=== PATIENT | male | born 1955 | race Caucasian/White ===

== ENCOUNTER 2021-04-29 23:10 | Inpatient (IN) | payer BC ==
[~2021-04-29] VITALS: Ht 157.5 cm; Wt 63.5 kg
[~2021-04-29 23:10] MED LIST: ADDERALL 20 MG20 MG; DEMEROL50 MG; METOPROLOL TART25 MG PO; NORCO 10-325 T1 EACH; PREVACID30 M1; PROMETHAZINE HC25 M1; TYLENOL WITH C1 EACH PO
[2021-04-29] MEDS ORDERED: ASPIRIN 81 MG CHEW TAB PO ONE (23:30)
[2021-04-30 00:08] LABS: BASOPHILS # (AUTO) 0.1 (0.0-0.1); EOSINOPHILS # (AUTO) 0.1 (0.0-0.4); EOSINOPHILS % 1.1 % (0.0-6.0); HEMOGLOBIN 13.8 g/dL (14.0-18.0); LYMPHOCYTES # (AUTO) 1.7 (1.0-3.2); LYMPHOCYTES % 17.7 % (18.0-39.1); MEAN CORPUSCULAR HEMOGLOBIN 29.3 pg (28-32); MEAN CORPUSCULAR HGB CONC 34.5 g/dL (31-35); MEAN CORPUSCULAR VOLUME 84.9 fL (81-99); MONOCYTES # (AUTO) 0.5 (0.2-0.8); MONOCYTES % 5.2 % (4.4-11.3); NEUTROPHILS # (AUTO) 7.3 (2.1-6.9); NEUTROPHILS % 74.6 % (38.7-80.0); PLATELET COUNT 236 x10e3/uL (140-360); RED BLOOD COUNT 4.71 x10e6/uL (4.3-5.7); RED CELL DISTRIBUTION WIDTH 13.3 % (11.7-14.4)
[2021-04-30] MEDS: MORPHINE SULFATE INJ 4 MG/ML INJ 1ML IV PRN ×2 (00:20→18:00)
[2021-04-30] MEDS: ONDANSETRON HCL INJ 2MG/ML 2ML 2 MG/ML VIAL IV PRN ×3 (00:20→11:19)
[2021-04-30] MEDS ORDERED: ONDANSETRON HCL INJ 2MG/ML 2ML 2 MG/ML VIAL ONE (00:21)
[2021-04-30] MEDS ORDERED: MORPHINE SULFATE INJ 4 MG/ML INJ 1ML ONE (00:21)
[2021-04-30 00:28] LABS: ALBUMIN 3.8 g/dL (3.5-5.0); ALBUMIN/GLOBULIN RATIO 1.2 (0.8-2.0); ANION GAP 15.8 mmol/L (8-16); CALCIUM 8.7 mg/dL (8.4-10.2); CREATININE, SERUM 1.37 mg/dL (0.72-1.25); POTASSIUM 3.8 mmol/L (3.5-5.1)
[2021-04-30 00:34] LABS: CREATINE KINASE MB 3.9 ng/mL (0-5.0)
[2021-04-30] MEDS ORDERED: NITROGLYCERIN 0.4 MG SUBL SL PRN (02:45)
[2021-04-30] MEDS ORDERED: NITROGLYCERIN 0.4 MG SUBL ONE (02:49)
[2021-04-30] MEDS ORDERED: MORPHINE SULFATE INJ 4 MG/ML INJ 1ML IV STA (03:08)
[2021-04-30 03:32] LABS: CREATINE KINASE MB 3.7 ng/mL (0-5.0)
[2021-04-30 09:48] LABS: CREATINE KINASE MB 4.1 ng/mL (0-5.0)
[2021-04-30 11:30] VITALS: BP 94/51
[2021-04-30 11:52] VITALS: BP 94/51
[2021-04-30 12:08] VITALS: BP 94/51
[2021-04-30] MEDS ORDERED: LIPITOR20 MG PO (12:33)
[2021-04-30] MEDS ORDERED: ISOSORBIDE MONO30 MG PO (12:33)
[2021-04-30] MEDS ORDERED: NEXIUM20 MG PO (12:33)
[2021-04-30] MEDS ORDERED: PROMETHAZINE HC25 M1 PO (12:33)
[2021-04-30] MEDS ORDERED: ASPIRIN CHEW81 MG PO (12:33)
[2021-04-30] MEDS ORDERED: METOPROLOL TART25 MG PO (12:33)
[2021-04-30] MEDS ORDERED: AMBIEN10 MG PO (12:33)
[2021-04-30] MEDS ORDERED: MORPHINE SULFAT30 M2 PO (12:33)
[2021-04-30] MEDS ORDERED: OXYCODONE-ACET1 EAC3 PO (12:33)
[2021-04-30] MEDS ORDERED: CLOPIDOGREL75 MG PO (12:33)
[2021-04-30] MEDS ORDERED: NITROGLYCERIN0.4 MG SL (12:33)
[2021-04-30] MEDS ORDERED: NEURONTIN400 MG PO (12:33)
[2021-04-30] MEDS ORDERED: TIZANIDINE HCL4 M1 PO (12:33)
[2021-04-30] MEDS ORDERED: NON-FORMULARY MEDICATION (Oxycodone Hcl/Acetaminophen (Oxycodone-Acetaminophen 10-325) 1 T PO PRN (13:15)
[2021-04-30] MEDS ORDERED: MORPHINE SULFATE 30 MG TAB ER PO PRN (13:15)
[2021-04-30] MEDS: PANTOPRAZOLE SOD 40 MG TABEC PO SCH ×2 (14:54→22:12)
[2021-04-30] MEDS: TIZANIDINE HCL 4 MG TAB PO SCH ×2 (14:55→22:10)
[2021-04-30] MEDS: GABAPENTIN 400 MG CAP PO SCH ×2 (14:55→22:12)
[2021-04-30 15:58] VITALS: BP 120/91
[2021-04-30] MEDS: ISOSORBIDE MONONITRATE 30 MG TAB CR PO SCH (21:00)
[2021-04-30] MEDS ORDERED: METOPROLOL TARTRATE 25 MG TAB PO SCH (21:00)
[2021-04-30 21:13] VITALS: BP 101/58
[2021-04-30 21:30] VITALS: BP 101/58
[2021-04-30] MEDS: ATORVASTATIN 40 MG TAB PO SCH (22:12)
[2021-04-30] MEDS: CLOPIDOGREL BISULFATE 75 MG TAB PO SCH (22:12)
[2021-04-30] MEDS: ASPIRIN 81 MG CHEW TAB PO SCH (22:12)
[2021-04-30] MEDS ORDERED: DIPHENHYDRAMINE HCL 25 MG CAP PO ONE (22:45)
[2021-04-30] MEDS ORDERED: PREDNISONE 20 MG TAB PO ONE (22:45)
[2021-05-01] VITALS (10 sets, daily range): BP systolic 96–151; BP diastolic 65–88
[2021-05-01] MEDS: ONDANSETRON HCL INJ 2MG/ML 2ML 2 MG/ML VIAL IV PRN ×3 (00:34→14:51)
[2021-05-01] MEDS: MORPHINE SULFATE INJ 4 MG/ML INJ 1ML IV PRN ×4 (00:34→22:29)
[2021-05-01] MEDS ORDERED: SODIUM CHLORIDE 0.9% 1000ML 1,000 ML IV ONE (02:15)
[2021-05-01] MEDS: OXYCODONE/ACETAMINOPHEN 5-325 1 EACH TABLET PO PRN ×2 (03:59→11:15)
[2021-05-01] MEDS: NITROGLYCERIN 0.4 MG SUBL SL PRN ×4 (04:07→14:55)
[2021-05-01] MEDS ORDERED: METOPROLOL TARTRATE INJ 1 MG/ML VIAL IV ONE (04:45)
[2021-05-01] MEDS: ISOSORBIDE MONONITRATE 30 MG TAB CR PO SCH (05:30)
[2021-05-01 05:38] LABS: CHOL/HDL RATIO 5.1 (3.9-4.7)
[2021-05-01] MEDS ORDERED: DIPHENHYDRAMINE HCL 25 MG CAP PO ONE ×2 (06:00→18:55)
[2021-05-01] MEDS ORDERED: PREDNISONE 20 MG TAB PO ONE (06:00)
[2021-05-01 06:26] LABS: INR 0.81; PROTHROMBIN TIME 11.7 seconds (11.9-14.5)
[2021-05-01 06:27] LABS: PARTIAL THROMBOPLASTIN TIME 31.3 seconds (23.8-35.5)
[2021-05-01] MEDS: PANTOPRAZOLE SOD 40 MG TABEC PO SCH ×2 (09:41→22:10)
[2021-05-01] MEDS: GABAPENTIN 400 MG CAP PO SCH ×3 (09:41→22:10)
[2021-05-01] MEDS: TIZANIDINE HCL 4 MG TAB PO SCH ×3 (09:42→22:11)
[2021-05-01] MEDS ORDERED: DIPHENHYDRAMINE HCL INJ 50 MG/ML VIAL ONE (16:58)
[2021-05-01] MEDS ORDERED: METHYLPREDNISOLONE SOD SUCC 125 MG/2ML VIAL ONE (16:58)
[2021-05-01] MEDS ORDERED: HEPARIN SOD/SOD CHLORIDE 2,000 ML ONE (16:59)
[2021-05-01] MEDS ORDERED: LIDOCAINE HCL 2% LOCAL 20 ML VIAL ONE (16:59)
[2021-05-01] MEDS ORDERED: HEPARIN SOD (PORCINE) 1000 UNIT/ML 30ML ONE (16:59)
[2021-05-01] MEDS ORDERED: FAMOTIDINE 20 MG/2 ML VIAL IV ONE (16:59)
[2021-05-01] MEDS ORDERED: IOPAMIDOL 370 MG/ML 200 ML INFUS..BTL INJ ONE (16:59)
[2021-05-01] MEDS ORDERED: SODIUM CHLORIDE 0.9% 1000ML 1,000 ML ONE (17:00)
[2021-05-01] MEDS ORDERED: NITROGLYCERIN/D5W 200 MCG/ML 250 ML ONE (17:00)
[2021-05-01] MEDS ORDERED: FENTANYL CITRATE/PF 100MCG/2 ML INJ ONE (17:33)
[2021-05-01] MEDS ORDERED: MIDAZOLAM HCL 2 MG/2 ML VIAL ONE (17:33)
[2021-05-01] MEDS ORDERED: HYDROCODONE/APAP 5MG-325MG TAB PO ONE (18:55)
[2021-05-01] MEDS: SODIUM CHLORIDE 0.9% 1000ML 1,000 ML IV SCH (22:08)
[2021-05-01] MEDS: CLOPIDOGREL BISULFATE 75 MG TAB PO SCH (22:10)
[2021-05-01] MEDS: ASPIRIN 81 MG CHEW TAB PO SCH (22:10)
[2021-05-01] MEDS: ATORVASTATIN 40 MG TAB PO SCH (22:10)
[2021-05-02] VITALS (10 sets, daily range): BP systolic 70–140; BP diastolic 47–84
[2021-05-02] MEDS: SODIUM CHLORIDE 0.9% 1000ML 1,000 ML IV SCH ×2 (05:15→18:29)
[2021-05-02] MEDS: ONDANSETRON HCL INJ 2MG/ML 2ML 2 MG/ML VIAL IV PRN (05:23)
[2021-05-02 05:55] LABS: BASOPHILS # (AUTO) 0.1 (0.0-0.1); BASOPHILS % 0.5 % (0.0-1.0); EOSINOPHILS # (AUTO) 0.1 (0.0-0.4); EOSINOPHILS % 0.5 % (0.0-6.0); HEMATOCRIT 37.7 % (38.2-49.6); HEMOGLOBIN 12.8 g/dL (14.0-18.0); LYMPHOCYTES # (AUTO) 2.6 (1.0-3.2); MEAN CORPUSCULAR HEMOGLOBIN 30.1 pg (28-32); MEAN CORPUSCULAR VOLUME 88.7 fL (81-99); MONOCYTES # (AUTO) 1.1 (0.2-0.8); MONOCYTES % 8.3 % (4.4-11.3); NEUTROPHILS # (AUTO) 8.7 (2.1-6.9); NEUTROPHILS % 69.3 % (38.7-80.0); PLATELET COUNT 162 x10e3/uL (140-360); RED BLOOD COUNT 4.25 x10e6/uL (4.3-5.7); RED CELL DISTRIBUTION WIDTH 13.9 % (11.7-14.4)
[2021-05-02 06:21] LABS: ANION GAP 15.9 mmol/L (8-16); CREATININE, SERUM 1.38 mg/dL (0.72-1.25); POTASSIUM 3.9 mmol/L (3.5-5.1)
[2021-05-02] MEDS: PANTOPRAZOLE SOD 40 MG TABEC PO SCH ×2 (09:00→21:48)
[2021-05-02] MEDS ORDERED: METOPROLOL SUCCINATE 25 MG TAB XL PO SCH (09:00)
[2021-05-02] MEDS: RANOLAZINE 500 MG TABSR PO SCH ×2 (09:05→16:44)
[2021-05-02] MEDS: TIZANIDINE HCL 4 MG TAB PO SCH ×3 (09:07→21:48)
[2021-05-02] MEDS: GABAPENTIN 400 MG CAP PO SCH ×3 (09:12→21:48)
[2021-05-02] MEDS: PROMETHAZINE HCL 25 MG TAB PO PRN (18:30)
[2021-05-02] MEDS: MORPHINE SULFATE ORAL SOLN 10 MG/5 ML UDC PO PRN (18:30)
[2021-05-02] MEDS: ATORVASTATIN 40 MG TAB PO SCH (21:48)
[2021-05-02] MEDS: CLOPIDOGREL BISULFATE 75 MG TAB PO SCH (21:48)
[2021-05-02] MEDS: ISOSORBIDE MONONITRATE 30 MG TAB CR PO SCH (21:48)
[2021-05-02] MEDS: ASPIRIN 81 MG CHEW TAB PO SCH (21:48)
[2021-05-02] MEDS: ZOLPIDEM TARTRATE 10 MG TAB PO PRN (22:16)
[2021-05-03] VITALS (10 sets, daily range): BP systolic 82–112; BP diastolic 50–69
[2021-05-03] MEDS: ONDANSETRON HCL INJ 2MG/ML 2ML 2 MG/ML VIAL IV PRN (03:25)
[2021-05-03] MEDS: MORPHINE SULFATE INJ 4 MG/ML INJ 1ML IV PRN ×2 (03:27→09:30)
[2021-05-03] MEDS: SODIUM CHLORIDE 0.9% 1000ML 1,000 ML IV SCH ×3 (06:02→21:15)
[2021-05-03] MEDS: GABAPENTIN 400 MG CAP PO SCH ×3 (08:15→21:00)
[2021-05-03] MEDS: RANOLAZINE 500 MG TABSR PO SCH ×2 (08:19→17:59)
[2021-05-03] MEDS: MORPHINE SULFATE ORAL SOLN 10 MG/5 ML UDC PO PRN ×3 (08:21→21:39)
[2021-05-03] MEDS: PANTOPRAZOLE SOD 40 MG TABEC PO SCH ×2 (08:23→21:00)
[2021-05-03] MEDS: TIZANIDINE HCL 4 MG TAB PO SCH ×3 (08:24→21:00)
[2021-05-03] MEDS: CLOPIDOGREL BISULFATE 75 MG TAB PO SCH (21:00)
[2021-05-03] MEDS: ATORVASTATIN 40 MG TAB PO SCH (21:00)
[2021-05-03] MEDS: ISOSORBIDE MONONITRATE 30 MG TAB CR PO SCH (21:00)
[2021-05-03] MEDS: ASPIRIN 81 MG CHEW TAB PO SCH (21:00)
[2021-05-03] MEDS: PROMETHAZINE HCL 25 MG TAB PO PRN (21:39)
[2021-05-04] VITALS: BP 84/54
[2021-05-04 04:00] VITALS: BP 136/86
[2021-05-04 07:52] VITALS: BP 130/84
[2021-05-04] MEDS: PANTOPRAZOLE SOD 40 MG TABEC PO SCH ×2 (08:50→20:34)
[2021-05-04] MEDS: RANOLAZINE 500 MG TABSR PO SCH ×2 (09:00→17:22)
[2021-05-04] MEDS: TIZANIDINE HCL 4 MG TAB PO SCH ×3 (09:00→20:34)
[2021-05-04] MEDS: GABAPENTIN 400 MG CAP PO SCH ×3 (09:00→20:34)
[2021-05-04] MEDS: PROMETHAZINE HCL 25 MG TAB PO PRN ×2 (09:20→20:35)
[2021-05-04] MEDS: MORPHINE SULFATE ORAL SOLN 10 MG/5 ML UDC PO PRN ×3 (09:20→20:35)
[2021-05-04 09:29] VITALS: BP 130/84
[2021-05-04] MEDS: SODIUM CHLORIDE 0.9% 1000ML 1,000 ML IV SCH ×3 (11:00→20:34)
[2021-05-04 11:48] VITALS: BP 84/54
[2021-05-04 16:44] VITALS: BP 106/72
[2021-05-04] MEDS: ASPIRIN 81 MG CHEW TAB PO SCH (20:33)
[2021-05-04] MEDS: ATORVASTATIN 40 MG TAB PO SCH (20:33)
[2021-05-04] MEDS: CLOPIDOGREL BISULFATE 75 MG TAB PO SCH (20:34)
[2021-05-04] MEDS: ISOSORBIDE MONONITRATE 30 MG TAB CR PO SCH (20:36)
[2021-05-05] VITALS: BP 89/57
[2021-05-05 07:20] LABS: BASOPHILS # (AUTO) 0.1 (0.0-0.1); BASOPHILS % 0.9 % (0.0-1.0); EOSINOPHILS # (AUTO) 0.2 (0.0-0.4); EOSINOPHILS % 2.6 % (0.0-6.0); HEMATOCRIT 32.8 % (38.2-49.6); HEMOGLOBIN 11.2 g/dL (14.0-18.0); LYMPHOCYTES # (AUTO) 1.2 (1.0-3.2); MEAN CORPUSCULAR HEMOGLOBIN 30.1 pg (28-32); MEAN CORPUSCULAR HGB CONC 34.1 g/dL (31-35); MEAN CORPUSCULAR VOLUME 88.2 fL (81-99); MONOCYTES # (AUTO) 0.5 (0.2-0.8); MONOCYTES % 7.3 % (4.4-11.3); NEUTROPHILS # (AUTO) 4.9 (2.1-6.9); NEUTROPHILS % 70.8 % (38.7-80.0); PLATELET COUNT 143 x10e3/uL (140-360); RED BLOOD COUNT 3.72 x10e6/uL (4.3-5.7)
[2021-05-05 07:45] LABS: ANION GAP 12.7 mmol/L (8-16); BLOOD UREA NITROGEN 12 mg/dL (7-26); BUN/CREATININE RATIO 11 (6-25); CARBON DIOXIDE 21 mmol/L (22-29); CHLORIDE 106 mmol/L (98-107); CREATININE, SERUM 1.09 mg/dL (0.72-1.25); EST GLOMERULAR FILTRATION RATE > 60 ML/MIN (60-); GLUCOSE 115 mg/dL (74-118); POTASSIUM 3.7 mmol/L (3.5-5.1); SODIUM 136 mmol/L (136-145)
[2021-05-05] MEDS: TIZANIDINE HCL 4 MG TAB PO SCH ×3 (09:20→20:26)
[2021-05-05] MEDS: GABAPENTIN 400 MG CAP PO SCH ×3 (09:20→20:27)
[2021-05-05] MEDS: PANTOPRAZOLE SOD 40 MG TABEC PO SCH ×2 (09:20→20:26)
[2021-05-05] MEDS ORDERED: FUROSEMIDE INJ 10 MG/ML 2 ML VIAL IV ONE (10:45)
[2021-05-05] MEDS: MORPHINE SULFATE ORAL SOLN 10 MG/5 ML UDC PO PRN ×2 (11:50→23:35)
[2021-05-05] MEDS: PROMETHAZINE HCL 25 MG TAB PO PRN ×2 (11:50→23:35)
[2021-05-05] MEDS: ALBUTEROL SULF 0.083% NEB SOLN 3 ML NEB NEB SCH ×2 (15:20→22:50)
[2021-05-05] MEDS: ASPIRIN 81 MG CHEW TAB PO SCH (20:26)
[2021-05-05] MEDS: CLOPIDOGREL BISULFATE 75 MG TAB PO SCH (20:26)
[2021-05-05] MEDS: ATORVASTATIN 40 MG TAB PO SCH (20:27)
[2021-05-05] MEDS: ISOSORBIDE MONONITRATE 30 MG TAB CR PO SCH (20:34)
[2021-05-06] MEDS: MORPHINE SULFATE ORAL SOLN 10 MG/5 ML UDC PO PRN ×2 (04:38→09:00)
[2021-05-06 04:53] LABS: BASOPHILS # (AUTO) 0.1 (0.0-0.1); BASOPHILS % 0.7 % (0.0-1.0); EOSINOPHILS # (AUTO) 0.1 (0.0-0.4); EOSINOPHILS % 1.5 % (0.0-6.0); HEMATOCRIT 34.4 % (38.2-49.6); HEMOGLOBIN 11.8 g/dL (14.0-18.0); LYMPHOCYTES # (AUTO) 1.3 (1.0-3.2); LYMPHOCYTES % 16.3 % (18.0-39.1); MEAN CORPUSCULAR HGB CONC 34.3 g/dL (31-35); MEAN CORPUSCULAR VOLUME 87.5 fL (81-99); MONOCYTES # (AUTO) 0.6 (0.2-0.8); MONOCYTES % 7.6 % (4.4-11.3); NEUTROPHILS # (AUTO) 5.9 (2.1-6.9); NEUTROPHILS % 73.5 % (38.7-80.0); PLATELET COUNT 165 x10e3/uL (140-360); RED BLOOD COUNT 3.93 x10e6/uL (4.3-5.7); RED CELL DISTRIBUTION WIDTH 13.7 % (11.7-14.4)
[2021-05-06 07:43] LABS: ANION GAP 11.6 mmol/L (8-16); BLOOD UREA NITROGEN 12 mg/dL (7-26); BUN/CREATININE RATIO 12 (6-25); CALCIUM 8.5 mg/dL (8.4-10.2); CARBON DIOXIDE 25 mmol/L (22-29); CHLORIDE 103 mmol/L (98-107); CREATININE, SERUM 0.99 mg/dL (0.72-1.25); EST GLOMERULAR FILTRATION RATE > 60 ML/MIN (60-); GLUCOSE 127 mg/dL (74-118); POTASSIUM 3.6 mmol/L (3.5-5.1); SODIUM 136 mmol/L (136-145)
[2021-05-06] MEDS: PANTOPRAZOLE SOD 40 MG TABEC PO SCH (09:00)
[2021-05-06] MEDS: TIZANIDINE HCL 4 MG TAB PO SCH ×2 (09:04→14:17)
[2021-05-06] MEDS: GABAPENTIN 400 MG CAP PO SCH ×2 (09:04→14:05)
[2021-05-06] MEDS ORDERED: FUROSEMIDE INJ 10 MG/ML 2 ML VIAL ONE (18:34)
[2021-05-06] MEDS: ALBUTEROL SULF 0.083% NEB SOLN 3 ML NEB NEB SCH (19:30)
[2021-05-06] MEDS ORDERED: POTASSIUM CHLORIDE 20 MEQ TAB CR PO ONE (20:41)
[2021-05-07 04:00] VITALS: BP 94/62
[2021-05-07] MEDS: ALBUTEROL SULF 0.083% NEB SOLN 3 ML NEB NEB SCH ×3 (07:00→22:30)
[2021-05-07] MEDS: TIZANIDINE HCL 4 MG TAB PO SCH ×3 (08:50→20:05)
[2021-05-07] MEDS: PANTOPRAZOLE SOD 40 MG TABEC PO SCH ×2 (09:00→20:05)
[2021-05-07 10:54] LABS: HEMOGLOBIN 11.6 g/dL (14.0-18.0); LYMPHOCYTES % 11.6 % (18.0-39.1); MEAN CORPUSCULAR HEMOGLOBIN 30.5 pg (28-32); MEAN CORPUSCULAR HGB CONC 35.2 g/dL (31-35); MEAN CORPUSCULAR VOLUME 86.8 fL (81-99); NEUTROPHILS % 76.5 % (38.7-80.0); PLATELET COUNT 194 x10e3/uL (140-360); RED CELL DISTRIBUTION WIDTH 13.8 % (11.7-14.4)
[2021-05-07 10:55] LABS: BASOPHILS # (AUTO) 0.1 (0.0-0.1); BASOPHILS % 0.8 % (0.0-1.0); CALCIUM 8.8 mg/dL (8.4-10.2); CREATININE, SERUM 1.57 mg/dL (0.72-1.25); EOSINOPHILS # (AUTO) 0.1 (0.0-0.4); EOSINOPHILS % 1.4 % (0.0-6.0); LYMPHOCYTES # (AUTO) 1.1 (1.0-3.2); MONOCYTES # (AUTO) 0.9 (0.2-0.8); MONOCYTES % 9.2 % (4.4-11.3); NEUTROPHILS # (AUTO) 7.5 (2.1-6.9)
[2021-05-07] MEDS ORDERED: FUROSEMIDE 40 MG TAB ONE (12:41)
[2021-05-07] MEDS: FUROSEMIDE 40 MG TAB PO SCH ×2 (13:00→20:07)
[2021-05-07] MEDS: PROMETHAZINE HCL 25 MG TAB PO PRN (14:00)
[2021-05-07] MEDS: GABAPENTIN 400 MG CAP PO SCH ×2 (15:00→20:39)
[2021-05-07] MEDS ORDERED: MORPHINE SULFATE ORAL SOLN 10 MG/5 ML UDC GT PRN (15:30)
[2021-05-07 16:00] VITALS: BP 131/69
[2021-05-07 20:00] VITALS: BP 169/96
[2021-05-07] MEDS: MORPHINE SULFATE 30 MG TAB ER PO PRN (20:06)
[2021-05-07] MEDS: ZOLPIDEM TARTRATE 10 MG TAB PO PRN (20:39)
[2021-05-07] MEDS: ISOSORBIDE MONONITRATE 30 MG TAB CR PO SCH (21:00)
[2021-05-07] MEDS: ASPIRIN 81 MG CHEW TAB PO SCH (21:00)
[2021-05-07] MEDS: CLOPIDOGREL BISULFATE 75 MG TAB PO SCH (21:00)
[2021-05-07] MEDS: ATORVASTATIN 40 MG TAB PO SCH (21:00)
[2021-05-08] VITALS (8 sets, daily range): BP systolic 88–177; BP diastolic 56–87
[2021-05-08] MEDS: ALBUTEROL SULF 0.083% NEB SOLN 3 ML NEB NEB SCH ×2 (08:01→14:44)
[2021-05-08] MEDS: PANTOPRAZOLE SOD 40 MG TABEC PO SCH ×2 (08:50→21:25)
[2021-05-08] MEDS: GABAPENTIN 400 MG CAP PO SCH ×3 (08:50→21:24)
[2021-05-08] MEDS: TIZANIDINE HCL 4 MG TAB PO SCH ×3 (08:50→21:25)
[2021-05-08] MEDS: MORPHINE SULFATE 30 MG TAB ER PO PRN ×4 (08:50→19:05)
[2021-05-08] MEDS: FUROSEMIDE 40 MG TAB PO SCH ×2 (08:50→21:24)
[2021-05-08] MEDS: PROMETHAZINE HCL 25 MG TAB PO PRN (08:50)
[2021-05-08] MEDS ORDERED: BISACODYL 10 MG SUPP PR ONE (20:15)
[2021-05-08] MEDS: ASPIRIN 81 MG CHEW TAB PO SCH (21:22)
[2021-05-08] MEDS: ISOSORBIDE MONONITRATE 30 MG TAB CR PO SCH (21:24)
[2021-05-08] MEDS: CLOPIDOGREL BISULFATE 75 MG TAB PO SCH (21:24)
[2021-05-08] MEDS: ATORVASTATIN 40 MG TAB PO SCH (21:24)
[2021-05-08] MEDS: LACTULOSE SYRUP 20 GM/30 ML UDC PO SCH (21:26)
[2021-05-09] VITALS (8 sets, daily range): BP systolic 86–132; BP diastolic 54–78
[2021-05-09] MEDS: MORPHINE SULFATE 30 MG TAB ER PO PRN ×3 (00:10→14:17)
[2021-05-09] MEDS: ALBUTEROL SULF 0.083% NEB SOLN 3 ML NEB NEB SCH ×2 (06:09→13:25)
[2021-05-09 06:51] LABS: ALBUMIN 3.7 g/dL (3.5-5.0); ALBUMIN/GLOBULIN RATIO 0.8 (0.8-2.0); ANION GAP 19.2 mmol/L (8-16); CALCIUM 9.9 mg/dL (8.4-10.2); CREATININE, SERUM 2.08 mg/dL (0.72-1.25); POTASSIUM 4.2 mmol/L (3.5-5.1)
[2021-05-09] MEDS: FUROSEMIDE 40 MG TAB PO SCH ×2 (08:50→21:40)
[2021-05-09] MEDS: TIZANIDINE HCL 4 MG TAB PO SCH ×3 (08:50→21:40)
[2021-05-09] MEDS: PANTOPRAZOLE SOD 40 MG TABEC PO SCH ×2 (08:50→21:40)
[2021-05-09] MEDS: GABAPENTIN 400 MG CAP PO SCH ×3 (08:50→21:40)
[2021-05-09 14:20] LABS: HEMATOCRIT 40.3 % (38.2-49.6); HEMOGLOBIN 13.9 g/dL (14.0-18.0)
[2021-05-09] MEDS ORDERED: ONDANSETRON HCL 4 MG ORAL DISINTEGRATING TAB PO PRN (16:15)
[2021-05-09] MEDS: LACTULOSE SYRUP 20 GM/30 ML UDC PO SCH (16:51)
[2021-05-09] MEDS: ASPIRIN 81 MG CHEW TAB PO SCH (21:40)
[2021-05-09] MEDS: ISOSORBIDE MONONITRATE 30 MG TAB CR PO SCH (21:40)
[2021-05-09] MEDS: CLOPIDOGREL BISULFATE 75 MG TAB PO SCH (21:40)
[2021-05-09] MEDS: ATORVASTATIN 40 MG TAB PO SCH (21:40)
== END 2021-05-09 22:43 | DRG 286 ==
LOC: ER 23:20 → ERHOLD 04-30 01:37 → MED/SURG2 04-30 10:03 → OBSVTOIN 05-01 13:42
PROC: 4A023N7 Measurement of Cardiac Sampling and Pressure, Left Heart, Percutaneous Approach (ICD-10-PCS; principal; 2021-05-01)
PROC: B2111ZZ Fluoroscopy of Multiple Coronary Arteries using Low Osmolar Contrast (ICD-10-PCS; 2021-05-01)
PROC: B2151ZZ Fluoroscopy of Left Heart using Low Osmolar Contrast (ICD-10-PCS; 2021-05-01)
DX: I25.110 Atherosclerotic heart disease of native coronary artery with unstable angina pectoris (principal); I50.31 Acute diastolic (congestive) heart failure; I69.354 Hemiplegia and hemiparesis following cerebral infarction affecting left non-dominant side; I69.351 Hemiplegia and hemiparesis following cerebral infarction affecting right dominant side; I13.0 Hypertensive heart and chronic kidney disease with heart failure and stage 1 through stage 4 chronic kidney disease, or unspecified chronic kidney disease; Z95.5 Presence of coronary angioplasty implant and graft; N18.31 Chronic kidney disease, stage 3a; I25.10 Atherosclerotic heart disease of native coronary artery without angina pectoris; E78.5 Hyperlipidemia, unspecified; Z91.041 Radiographic dye allergy status; Z91.048 Other nonmedicinal substance allergy status
CPT/HCPCS: 36415; 70450; 70551; 71045; 71046; 78580; 80048; 80053; 80061; 82270; 82550; 82553; 82948; 83880; 84484; 85014; 85018; 85025; 85379; 85610; 85730; 93005; 93041; 93306; 93458; 93880; 94640; 96361; 97139; 99152; 99153; 99284; A9540; C1760; C1769; C1887; G0378; J1200; J1644; J1940; J2001; J2250; J2270; J2405; J2930; J3010; J7030; J7512; Q0162; Q9967; U0002

== ENCOUNTER 2021-11-17 14:06 | Inpatient (IN) | payer BC ==
[~2021-11-17] VITALS: Ht 157.5 cm; Wt 61.0 kg
[~2021-11-17 14:06] MED LIST changes: +AMBIEN10 MG PO; +ASPIRIN CHEW81 MG PO; +CLOPIDOGREL75 MG PO; +ISOSORBIDE MONO30 MG PO; +LIPITOR20 MG PO; +MORPHINE SULFAT30 M2 PO; +NEURONTIN400 MG PO; +NEXIUM20 MG PO; +NITROGLYCERIN0.4 MG SL; +OXYCODONE-ACET1 EAC3 PO; +PROMETHAZINE HC25 M1 PO; +TIZANIDINE HCL4 M1 PO
[2021-11-17] MEDS ORDERED: DIPHENHYDRAMINE HCL INJ 50 MG/ML VIAL IV ONE (15:00)
[2021-11-17] MEDS ORDERED: METHYLPREDNISOLONE SOD SUCC 125 MG/2ML VIAL IV ONE (15:00)
[2021-11-17] MEDS ORDERED: HYDROCODONE/APAP 5MG-325MG TAB PO ONE (15:00)
[2021-11-17 15:21] LABS: BASOPHILS # (AUTO) 0.1 (0.0-0.1); BASOPHILS % 0.9 % (0.0-1.0); EOSINOPHILS # (AUTO) 0.1 (0.0-0.4); EOSINOPHILS % 0.5 % (0.0-6.0); HEMATOCRIT 46.6 % (38.2-49.6); HEMOGLOBIN 16.8 g/dL (14.0-18.0); LYMPHOCYTES # (AUTO) 1.6 (1.0-3.2); LYMPHOCYTES % 10.6 % (18.0-39.1); MEAN CORPUSCULAR HEMOGLOBIN 29.7 pg (28-32); MEAN CORPUSCULAR HGB CONC 36.1 g/dL (31-35); MEAN CORPUSCULAR VOLUME 82.5 fL (81-99); MONOCYTES # (AUTO) 0.8 (0.2-0.8); MONOCYTES % 5.7 % (4.4-11.3); NEUTROPHILS % 81.8 % (38.7-80.0); PLATELET COUNT 268 x10e3/uL (140-360); RED BLOOD COUNT 5.65 x10e6/uL (4.3-5.7)
[2021-11-17 15:31] LABS: INR 0.97; PARTIAL THROMBOPLASTIN TIME 29.1 seconds (23.8-35.5); PROTHROMBIN TIME 13.7 seconds (11.9-14.5)
[2021-11-17 15:39] LABS: ALBUMIN 4.1 g/dL (3.5-5.0); ALBUMIN/GLOBULIN RATIO 1.1 (0.8-2.0); ANION GAP 18.4 mmol/L (8-16); CREATININE, SERUM 1.41 mg/dL (0.72-1.25); POTASSIUM 3.4 mmol/L (3.5-5.1)
[2021-11-17 15:46] LABS: CREATINE KINASE MB 3.6 ng/mL (0-5.0)
[2021-11-17] MEDS ORDERED: RANEXA500 MG PO (16:42)
[2021-11-17] MEDS ORDERED: SODIUM CHLORIDE 0.9% 100 ML ONE (17:37)
[2021-11-17] MEDS ORDERED: IOPAMIDOL 370 MG/ML 200 ML INFUS..BTL INJ ONE (17:37)
[2021-11-17] MEDS ORDERED: Morphine 4mg Syringe 4 MG/ML INJ IV STA (17:53)
[2021-11-17 20:00] VITALS: BP 178/99
[2021-11-17] MEDS ORDERED: METRONIDAZOLE 500MG/NS 100ML 100 ML IV SCH (20:00)
[2021-11-17] MEDS ORDERED: ASPIRIN 81 MG CHEW TAB PO ONE (20:00)
[2021-11-17] MEDS ORDERED: SODIUM CHLORIDE 0.9% 250ML 250 ML ONE (21:32)
[2021-11-17 22:05] VITALS: BP 178/99
[2021-11-17] MEDS: Morphine 4mg Syringe 4 MG/ML INJ IV PRN (22:17)
[2021-11-17] MEDS: ONDANSETRON HCL INJ 2MG/ML 2ML 2 MG/ML VIAL IV PRN (22:18)
[2021-11-17] MEDS ORDERED: METRONIDAZOLE 500 MG TAB PO SCH (22:30)
[2021-11-17] MEDS: CIPROFLOXACIN 400 MG/D5W 200ML 200 ML IV SCH (22:41)
[2021-11-17 23:01] VITALS: BP 178/99
[2021-11-18] VITALS (25 sets, daily range): BP systolic 92–179; BP diastolic 56–107
[2021-11-18] MEDS ORDERED: METRONIDAZOLE 500 MG TAB PO STA (00:26)
[2021-11-18] MEDS ORDERED: CARVEDILOL6.25 MG PO (01:34)
[2021-11-18] MEDS ORDERED: HYDRALAZINE HCL 20 MG/ML VIAL IV PRN (02:00)
[2021-11-18] MEDS ORDERED: HYDROMORPHONE 1MG/1ML INJ ONE (02:54)
[2021-11-18] MEDS ORDERED: DIPHENHYDRAMINE HCL INJ 50 MG/ML VIAL ONE (02:54)
[2021-11-18] MEDS ORDERED: ONDANSETRON HCL INJ 2MG/ML 2ML 2 MG/ML VIAL ONE (02:54)
[2021-11-18 03:00] LABS: BASOPHILS % 0.3 % (0.0-1.0); HEMATOCRIT 48.1 % (38.2-49.6); HEMOGLOBIN 16.9 g/dL (14.0-18.0); LYMPHOCYTES # (AUTO) 1.5 (1.0-3.2); LYMPHOCYTES % 12.2 % (18.0-39.1); MEAN CORPUSCULAR HEMOGLOBIN 30.3 pg (28-32); MEAN CORPUSCULAR HGB CONC 35.1 g/dL (31-35); MONOCYTES # (AUTO) 0.1 (0.2-0.8); MONOCYTES % 1.2 % (4.4-11.3); NEUTROPHILS # (AUTO) 10.3 (2.1-6.9); NEUTROPHILS % 85.9 % (38.7-80.0); PLATELET COUNT 341 x10e3/uL (140-360); RED BLOOD COUNT 5.58 x10e6/uL (4.3-5.7); RED CELL DISTRIBUTION WIDTH 13.2 % (11.7-14.4)
[2021-11-18 03:02] LABS: MEAN CORPUSCULAR VOLUME 86.2 fL (81-99)
[2021-11-18] MEDS ORDERED: NITROGLYCERIN 2% OINT 1 GM PKT ONE (03:04)
[2021-11-18 03:14] LABS: ALBUMIN 4.3 g/dL (3.5-5.0); ALBUMIN/GLOBULIN RATIO 1.1 (0.8-2.0); ANION GAP 23.1 mmol/L (8-16); CALCIUM 9.9 mg/dL (8.4-10.2); CREATININE, SERUM 1.85 mg/dL (0.72-1.25)
[2021-11-18] MEDS ORDERED: LORAZEPAM INJ 2 MG/ML VIAL ONE (03:15)
[2021-11-18 03:16] LABS: POTASSIUM 4.1 mmol/L (3.5-5.1)
[2021-11-18 03:21] LABS: CREATINE KINASE MB 8.5 ng/mL (0-5.0)
[2021-11-18] MEDS ORDERED: ENOXAPARIN SODIUM INJ 100 MG/ML SYR SC ONE (03:21)
[2021-11-18] MEDS ORDERED: FAMOTIDINE 20 MG/2 ML VIAL IV ONE (03:25)
[2021-11-18] MEDS ORDERED: KETOROLAC TROMETHAMINE 30 MG/ML VIAL ONE (03:25)
[2021-11-18] MEDS ORDERED: FENTANYL CITRATE/PF 100MCG/2 ML INJ ONE (03:30)
[2021-11-18] MEDS ORDERED: FENTANYL CITRATE/PF 100MCG/2 ML INJ IV ONE (03:45)
[2021-11-18] MEDS ORDERED: NITROGLYCERIN/D5W 200 MCG/ML 250 ML IV PRN (04:15)
[2021-11-18] MEDS: ONDANSETRON HCL INJ 2MG/ML 2ML 2 MG/ML VIAL IV PRN (04:31)
[2021-11-18] MEDS: ASPIRIN 325 MG TAB PO ONE ×2 (04:51→06:30)
[2021-11-18] MEDS: METRONIDAZOLE 500 MG TAB PO SCH ×3 (06:30→17:00)
[2021-11-18] MEDS: Morphine 4mg Syringe 4 MG/ML INJ IV PRN (07:47)
[2021-11-18] MEDS: CARVEDILOL 3.125 MG TAB PO SCH ×2 (08:03→16:17)
[2021-11-18] MEDS: CIPROFLOXACIN 400 MG/D5W 200ML 200 ML IV SCH ×2 (08:03→16:17)
[2021-11-18] MEDS: NITROGLYCERIN 2% OINT 1 GM PKT TOP SCH ×2 (11:35→17:00)
[2021-11-18] MEDS: HYDROMORPHONE 2MG/ML 2 MG/ML ML IV PRN ×3 (11:36→21:16)
[2021-11-18] MEDS ORDERED: ASPIRIN 81 MG CHEW TAB ONE (11:43)
[2021-11-18] MEDS: ASPIRIN 81 MG CHEW TAB PO SCH (12:19)
[2021-11-18 12:39] LABS: CREATINE KINASE MB 28.6 ng/mL (0-5.0)
[2021-11-18] MEDS: DIPHENHYDRAMINE HCL INJ 50 MG/ML VIAL IV PRN (16:59)
[2021-11-18] MEDS ORDERED: PROMETHAZINE 12.5MG/ NACL 0.9% 50 ML ONE ×2 (23:16)
[2021-11-18] MEDS ORDERED: Pantoprazole IV 40 MG in SODIUM CHLORIDE 0.9% 50ML 50 ML IV SCH (23:30)
[2021-11-18] MEDS: PROMETHAZINE 12.5MG/ NACL 0.9% 12.5 MG/50 ML BAG IV PRN (23:43)
[2021-11-19] VITALS (26 sets, daily range): BP systolic 91–158; BP diastolic 62–119
[2021-11-19] MEDS: NITROGLYCERIN 2% OINT 1 GM PKT TOP SCH ×3 (00:15→11:02)
[2021-11-19] MEDS: METRONIDAZOLE 500 MG TAB PO SCH ×4 (00:15→18:00)
[2021-11-19] MEDS: HYDROMORPHONE 2MG/ML 2 MG/ML ML IV PRN ×5 (02:15→20:00)
[2021-11-19] MEDS: Pantoprazole IV 40 MG in SODIUM CHLORIDE 0.9% 50ML 50 ML IV SCH ×6 (06:05→20:33)
[2021-11-19 06:25] LABS: BASOPHILS # (AUTO) 0.1 (0.0-0.1); BASOPHILS % 1.1 % (0.0-1.0); EOSINOPHILS # (AUTO) 0.1 (0.0-0.4); EOSINOPHILS % 0.9 % (0.0-6.0); HEMATOCRIT 41.9 % (38.2-49.6); HEMOGLOBIN 14.5 g/dL (14.0-18.0); LYMPHOCYTES # (AUTO) 2.7 (1.0-3.2); LYMPHOCYTES % 20.3 % (18.0-39.1); MEAN CORPUSCULAR HEMOGLOBIN 30.1 pg (28-32); MEAN CORPUSCULAR HGB CONC 34.6 g/dL (31-35); MEAN CORPUSCULAR VOLUME 86.9 fL (81-99); MONOCYTES # (AUTO) 1.2 (0.2-0.8); MONOCYTES % 8.9 % (4.4-11.3); NEUTROPHILS # (AUTO) 9.1 (2.1-6.9); NEUTROPHILS % 68.4 % (38.7-80.0); PLATELET COUNT 260 x10e3/uL (140-360); RED BLOOD COUNT 4.82 x10e6/uL (4.3-5.7); RED CELL DISTRIBUTION WIDTH 13.4 % (11.7-14.4)
[2021-11-19] MEDS: PROMETHAZINE 12.5MG/ NACL 0.9% 12.5 MG/50 ML BAG IV PRN ×2 (06:39→20:30)
[2021-11-19 06:49] LABS: ALBUMIN 3.8 g/dL (3.5-5.0); ALBUMIN/GLOBULIN RATIO 1.2 (0.8-2.0); ANION GAP 14.2 mmol/L (8-16); CALCIUM 9.8 mg/dL (8.4-10.2); CREATININE, SERUM 1.66 mg/dL (0.72-1.25); POTASSIUM 4.2 mmol/L (3.5-5.1)
[2021-11-19 07:39] LABS: CREATINE KINASE MB 15.8 ng/mL (0-5.0)
[2021-11-19] MEDS: CARVEDILOL 3.125 MG TAB PO SCH ×2 (08:32→16:19)
[2021-11-19] MEDS: CIPROFLOXACIN 400 MG/D5W 200ML 200 ML IV SCH ×2 (08:32→16:03)
[2021-11-19] MEDS: ASPIRIN 81 MG CHEW TAB PO SCH (08:34)
[2021-11-19] MEDS: ZOLPIDEM TARTRATE 5 MG TAB PO PRN (23:00)
[2021-11-20] VITALS (22 sets, daily range): BP systolic 102–153; BP diastolic 63–114
[2021-11-20] MEDS: NITROGLYCERIN 2% OINT 1 GM PKT TOP SCH ×5 (00:19→18:30)
[2021-11-20] MEDS: HYDROMORPHONE 2MG/ML 2 MG/ML ML IV PRN ×5 (00:19→21:30)
[2021-11-20] MEDS ORDERED: CARVEDILOL 12.5 MG TAB PO ONE (00:45)
[2021-11-20] MEDS ORDERED: ACETAMINOPHEN 325 MG TAB PO PRN (00:45)
[2021-11-20] MEDS ORDERED: METOPROLOL TARTRATE INJ 1 MG/ML VIAL IV PRN (00:45)
[2021-11-20] MEDS: Pantoprazole IV 40 MG in SODIUM CHLORIDE 0.9% 50ML 50 ML IV SCH ×7 (04:00→21:30)
[2021-11-20] MEDS: PROMETHAZINE 12.5MG/ NACL 0.9% 12.5 MG/50 ML BAG IV PRN (04:30)
[2021-11-20] MEDS: METRONIDAZOLE 500 MG TAB PO SCH ×4 (05:32→18:30)
[2021-11-20] MEDS ORDERED: HEPARIN SOD (PORCINE) 1000 UNIT/ML 30ML ONE (08:33)
[2021-11-20] MEDS ORDERED: FENTANYL CITRATE/PF 100MCG/2 ML INJ ONE (08:33)
[2021-11-20] MEDS ORDERED: MIDAZOLAM HCL 2 MG/2 ML VIAL ONE (08:33)
[2021-11-20] MEDS ORDERED: LIDOCAINE HCL 2% LOCAL 20 ML VIAL ONE (08:33)
[2021-11-20] MEDS ORDERED: VERAPAMIL HCL 2.5 MG/ML 2 ML VIAL ONE (08:33)
[2021-11-20] MEDS ORDERED: IOPAMIDOL 370 MG/ML 200 ML INFUS..BTL INJ ONE (08:34)
[2021-11-20] MEDS ORDERED: HEPARIN SOD/SOD CHLORIDE 2,000 ML ONE (08:34)
[2021-11-20] MEDS ORDERED: NITROGLYCERIN/D5W 200 MCG/ML 250 ML ONE (08:34)
[2021-11-20] MEDS ORDERED: SODIUM CHLORIDE 0.9% 1000ML 1,000 ML ONE (08:34)
[2021-11-20] MEDS ORDERED: METHYLPREDNISOLONE SOD SUCC 125 MG/2ML VIAL ONE (08:50)
[2021-11-20] MEDS ORDERED: DIPHENHYDRAMINE HCL INJ 50 MG/ML VIAL ONE (08:50)
[2021-11-20] MEDS ORDERED: FAMOTIDINE 20 MG/2 ML VIAL IV ONE (08:50)
[2021-11-20] MEDS: ASPIRIN 81 MG CHEW TAB PO SCH ×2 (09:00→12:03)
[2021-11-20] MEDS: CIPROFLOXACIN 400 MG/D5W 200ML 200 ML IV SCH ×2 (09:59→18:30)
[2021-11-20] MEDS: ONDANSETRON HCL INJ 2MG/ML 2ML 2 MG/ML VIAL IV PRN (12:00)
[2021-11-20] MEDS: DOCUSATE SODIUM 100 MG CAP PO SCH ×2 (12:03→18:30)
[2021-11-20] MEDS: CARVEDILOL 3.125 MG TAB PO SCH ×2 (12:03→18:30)
[2021-11-20] MEDS ORDERED: BISACODYL 5 MG TAB EC PO ONE ×2 (12:30→16:00)
[2021-11-20] MEDS: SODIUM CHLORIDE 0.9% 1000ML 1,000 ML IV SCH (13:45)
[2021-11-20 14:31] LABS: CLARITY,URINE SL CLOUDY (CLEAR); COLOR,URINE STRAW (YELLOW); KETONES,URINE 1+ (NEGATIVE); LEUKOCYTE ESTERASE ,URINE NEGATIVE (NEGATIVE); NITRITE,URINE NEGATIVE (NEGATIVE); PROTEIN,URINE DIPSTICK NEGATIVE (NEGATIVE)
[2021-11-20 14:32] LABS: URINE UROBILINOGEN 0.2 mg/dL (0.2 - 1)
[2021-11-20 14:42] LABS: WBC,URINE (MAN) 0-5 /HPF (0-5)
[2021-11-20 15:10] LABS: CREATININE,URINE RANDOM 59.71 mg/dL (63-166)
[2021-11-20] MEDS: CLONIDINE HCL 0.2 MG/24 HR 1 EA PATCH TOP SCH (18:30)
[2021-11-20] MEDS ORDERED: CITRATE OF MAGNESIA 300ML BOTTLE PO ONE (22:00)
[2021-11-21] VITALS (17 sets, daily range): BP systolic 93–139; BP diastolic 63–104
[2021-11-21] MEDS: NITROGLYCERIN 2% OINT 1 GM PKT TOP SCH ×4 (00:16→18:00)
[2021-11-21] MEDS: METRONIDAZOLE 500 MG TAB PO SCH ×4 (00:16→18:19)
[2021-11-21] MEDS: SODIUM CHLORIDE 0.9% 1000ML 1,000 ML IV SCH ×4 (00:17→19:45)
[2021-11-21] MEDS: PROMETHAZINE 12.5MG/ NACL 0.9% 12.5 MG/50 ML BAG IV PRN ×2 (00:17→06:24)
[2021-11-21] MEDS: HYDROMORPHONE 2MG/ML 2 MG/ML ML IV PRN ×4 (02:00→21:08)
[2021-11-21] MEDS: Pantoprazole IV 40 MG in SODIUM CHLORIDE 0.9% 50ML 50 ML IV SCH ×5 (02:28→19:58)
[2021-11-21] MEDS ORDERED: DIPHENHYDRAMINE HCL INJ 50 MG/ML VIAL IV ONE (02:30)
[2021-11-21] MEDS ORDERED: CITRATE OF MAGNESIA 300ML BOTTLE PO ONE (05:00)
[2021-11-21] MEDS: CARVEDILOL 3.125 MG TAB PO SCH ×2 (07:17→16:49)
[2021-11-21] MEDS: DOCUSATE SODIUM 100 MG CAP PO SCH ×2 (07:18→18:19)
[2021-11-21] MEDS: CIPROFLOXACIN 400 MG/D5W 200ML 200 ML IV SCH ×2 (08:31→18:19)
[2021-11-21] MEDS: ASPIRIN 81 MG CHEW TAB PO SCH (09:00)
[2021-11-21] MEDS: ONDANSETRON HCL INJ 2MG/ML 2ML 2 MG/ML VIAL IV PRN (11:21)
[2021-11-21] MEDS ORDERED: LIDOCAINE HCL 2% LOCAL INJ 5 ML SDV VIAL INJ ONE (12:08)
[2021-11-21] MEDS ORDERED: PROPOFOL IV EMULSION 10 MG/ML 20 ML VIAL ONE (12:08)
[2021-11-21] MEDS ORDERED: MIDAZOLAM HCL 5 MG/ML VIAL ONE (12:44)
[2021-11-21] MEDS ORDERED: MIDAZOLAM HCL 2 MG/2 ML VIAL ONE (12:44)
[2021-11-21] MEDS ORDERED: FENTANYL CITRATE/PF 100MCG/2 ML INJ ONE (12:44)
[2021-11-21 16:43] LABS: WBC,FECAL (FECAL LACTOFERRIN) NEGATIVE (NEGATIVE)
[2021-11-21] MEDS: DIPHENHYDRAMINE HCL INJ 50 MG/ML VIAL IV PRN (18:20)
[2021-11-22] VITALS (10 sets, daily range): BP systolic 93–149; BP diastolic 53–87
[2021-11-22] MEDS: Pantoprazole IV 40 MG in SODIUM CHLORIDE 0.9% 50ML 50 ML IV SCH ×6 (00:02→21:46)
[2021-11-22] MEDS: SODIUM CHLORIDE 0.9% 1000ML 1,000 ML IV SCH ×5 (00:03→17:18)
[2021-11-22] MEDS: METRONIDAZOLE 500 MG TAB PO SCH ×5 (00:03→22:48)
[2021-11-22] MEDS: DIPHENHYDRAMINE HCL INJ 50 MG/ML VIAL IV PRN ×3 (00:20→21:55)
[2021-11-22] MEDS: ONDANSETRON HCL INJ 2MG/ML 2ML 2 MG/ML VIAL IV PRN ×2 (02:00→11:12)
[2021-11-22] MEDS: HYDROMORPHONE 2MG/ML 2 MG/ML ML IV PRN ×5 (02:00→19:53)
[2021-11-22] MEDS: NITROGLYCERIN 2% OINT 1 GM PKT TOP SCH ×5 (06:00→22:49)
[2021-11-22] MEDS: DOCUSATE SODIUM 100 MG CAP PO SCH ×3 (08:39→17:09)
[2021-11-22] MEDS: ASPIRIN 81 MG CHEW TAB PO SCH ×2 (08:39→09:00)
[2021-11-22] MEDS: CARVEDILOL 3.125 MG TAB PO SCH (08:40)
[2021-11-22] MEDS: CIPROFLOXACIN 400 MG/D5W 200ML 200 ML IV SCH ×2 (09:01→17:09)
[2021-11-22 10:03] LABS: C DIFFICILE TOXIN A&B AMP PROB NEGATIVE (NEGATIVE)
[2021-11-22] MEDS: PROMETHAZINE 12.5MG/ NACL 0.9% 12.5 MG/50 ML BAG IV PRN (13:35)
[2021-11-22] MEDS: CARVEDILOL 12.5 MG TAB PO SCH (17:09)
[2021-11-22] MEDS: ZOLPIDEM TARTRATE 5 MG TAB PO PRN (21:40)
[2021-11-22] MEDS ORDERED: CLOPIDOGREL BISULFATE 75 MG TAB PO ONE (22:30)
[2021-11-23] VITALS (8 sets, daily range): BP systolic 117–151; BP diastolic 74–81
[2021-11-23] MEDS: ONDANSETRON HCL INJ 2MG/ML 2ML 2 MG/ML VIAL IV PRN ×2 (00:01→06:00)
[2021-11-23] MEDS: HYDROMORPHONE 2MG/ML 2 MG/ML ML IV PRN ×6 (00:01→22:20)
[2021-11-23] MEDS: SODIUM CHLORIDE 0.9% 1000ML 1,000 ML IV SCH ×3 (03:15→23:15)
[2021-11-23] MEDS: Pantoprazole IV 40 MG in SODIUM CHLORIDE 0.9% 50ML 50 ML IV SCH ×5 (04:29→23:49)
[2021-11-23] MEDS: METRONIDAZOLE 500 MG TAB PO SCH ×3 (05:59→17:56)
[2021-11-23] MEDS: NITROGLYCERIN 2% OINT 1 GM PKT TOP SCH ×3 (06:00→17:56)
[2021-11-23] MEDS: DIPHENHYDRAMINE HCL INJ 50 MG/ML VIAL IV PRN (06:00)
[2021-11-23] MEDS: ASPIRIN 81 MG CHEW TAB PO SCH (08:52)
[2021-11-23] MEDS: DOCUSATE SODIUM 100 MG CAP PO SCH ×2 (08:52→17:55)
[2021-11-23] MEDS: CARVEDILOL 12.5 MG TAB PO SCH ×2 (08:53→17:56)
[2021-11-23] MEDS: CLOPIDOGREL BISULFATE 75 MG TAB PO SCH (08:53)
[2021-11-23] MEDS: PROMETHAZINE 12.5MG/ NACL 0.9% 12.5 MG/50 ML BAG IV PRN ×2 (08:54→21:57)
[2021-11-23] MEDS: CIPROFLOXACIN 400 MG/D5W 200ML 200 ML IV SCH ×2 (10:37→17:55)
[2021-11-23 12:19] LABS: ANION GAP 12.2 mmol/L (8-16); CALCIUM 8.9 mg/dL (8.4-10.2); CREATININE, SERUM 0.98 mg/dL (0.72-1.25); POTASSIUM 3.2 mmol/L (3.5-5.1)
[2021-11-23] MEDS: NITROGLYCERIN 0.4 MG SUBL SL PRN ×3 (22:27→22:39)
[2021-11-23] MEDS ORDERED: ASPIRIN 81 MG CHEW TAB PO PRN (23:30)
[2021-11-24] VITALS (7 sets, daily range): BP systolic 116–140; BP diastolic 68–86
[2021-11-24 00:11] LABS: CREATINE KINASE 76 IU/L (30-200)
[2021-11-24] MEDS: SODIUM CHLORIDE 0.9% 1000ML 1,000 ML IV SCH ×3 (00:23→20:07)
[2021-11-24] MEDS: METRONIDAZOLE 500 MG TAB PO SCH ×4 (00:24→17:12)
[2021-11-24] MEDS: HYDROMORPHONE 2MG/ML 2 MG/ML ML IV PRN ×5 (02:54→22:30)
[2021-11-24] MEDS: Pantoprazole IV 40 MG in SODIUM CHLORIDE 0.9% 50ML 50 ML IV SCH ×4 (05:00→20:07)
[2021-11-24] MEDS: NITROGLYCERIN 2% OINT 1 GM PKT TOP SCH ×4 (06:17→17:12)
[2021-11-24 07:14] LABS: ANION GAP 11.3 mmol/L (8-16); CALCIUM 8.6 mg/dL (8.4-10.2); CREATININE, SERUM 0.84 mg/dL (0.72-1.25); POTASSIUM 3.3 mmol/L (3.5-5.1)
[2021-11-24 07:18] LABS: BASOPHILS # (AUTO) 0.1 (0.0-0.1); BASOPHILS % 0.8 % (0.0-1.0); EOSINOPHILS # (AUTO) 0.2 (0.0-0.4); HEMATOCRIT 35.8 % (38.2-49.6); HEMOGLOBIN 12.3 g/dL (14.0-18.0); LYMPHOCYTES # (AUTO) 1.5 (1.0-3.2); LYMPHOCYTES % 20.6 % (18.0-39.1); MEAN CORPUSCULAR HGB CONC 34.4 g/dL (31-35); MEAN CORPUSCULAR VOLUME 87.3 fL (81-99); MONOCYTES # (AUTO) 0.6 (0.2-0.8); MONOCYTES % 8.4 % (4.4-11.3); NEUTROPHILS # (AUTO) 4.9 (2.1-6.9); NEUTROPHILS % 66.9 % (38.7-80.0); PLATELET COUNT 203 x10e3/uL (140-360); RED CELL DISTRIBUTION WIDTH 13.6 % (11.7-14.4)
[2021-11-24 08:32] LABS: CREATINE KINASE MB 1.5 ng/mL (0-5.0)
[2021-11-24] MEDS: ASPIRIN 81 MG CHEW TAB PO SCH (08:40)
[2021-11-24] MEDS: DOCUSATE SODIUM 100 MG CAP PO SCH ×2 (08:40→17:11)
[2021-11-24] MEDS: CIPROFLOXACIN 400 MG/D5W 200ML 200 ML IV SCH ×2 (08:40→17:11)
[2021-11-24] MEDS: PROMETHAZINE 12.5MG/ NACL 0.9% 12.5 MG/50 ML BAG IV PRN ×2 (08:41→22:30)
[2021-11-24] MEDS: CARVEDILOL 12.5 MG TAB PO SCH ×2 (08:41→17:12)
[2021-11-24] MEDS: CLOPIDOGREL BISULFATE 75 MG TAB PO SCH (08:41)
[2021-11-24] MEDS ORDERED: POTASSIUM CHLORIDE 20 MEQ TAB CR PO NR (10:04)
[2021-11-24] MEDS ORDERED: POTASSIUM CHLORIDE 10MEQ EA PO NR (11:00)
[2021-11-24] MEDS: DIPHENHYDRAMINE HCL INJ 50 MG/ML VIAL IV PRN (12:56)
[2021-11-24] MEDS ORDERED: SODIUM CHLORIDE 0.9% 250ML 250 ML ONE (22:34)
[2021-11-24] MEDS: ZOLPIDEM TARTRATE 5 MG TAB PO PRN (23:37)
[2021-11-25] VITALS (13 sets, daily range): BP systolic 121–165; BP diastolic 78–98
[2021-11-25] MEDS: DIPHENHYDRAMINE HCL INJ 50 MG/ML VIAL IV PRN ×2 (00:20→23:45)
[2021-11-25] MEDS: NITROGLYCERIN 2% OINT 1 GM PKT TOP SCH ×4 (00:30→18:00)
[2021-11-25] MEDS: METRONIDAZOLE 500 MG TAB PO SCH ×4 (00:30→18:00)
[2021-11-25] MEDS: Pantoprazole IV 40 MG in SODIUM CHLORIDE 0.9% 50ML 50 ML IV SCH ×5 (01:48→16:00)
[2021-11-25] MEDS: HYDROMORPHONE 2MG/ML 2 MG/ML ML IV PRN ×3 (04:37→21:07)
[2021-11-25] MEDS: PROMETHAZINE 12.5MG/ NACL 0.9% 12.5 MG/50 ML BAG IV PRN ×3 (04:45→21:00)
[2021-11-25] MEDS: CIPROFLOXACIN 400 MG/D5W 200ML 200 ML IV SCH ×2 (09:00→17:00)
[2021-11-25] MEDS: ASPIRIN 81 MG CHEW TAB PO SCH (09:00)
[2021-11-25] MEDS: CLOPIDOGREL BISULFATE 75 MG TAB PO SCH (09:00)
[2021-11-25] MEDS: CARVEDILOL 12.5 MG TAB PO SCH ×2 (09:00→17:00)
[2021-11-25] MEDS: DOCUSATE SODIUM 100 MG CAP PO SCH ×2 (09:00→17:00)
[2021-11-25] MEDS: SODIUM CHLORIDE 0.9% 1000ML 1,000 ML IV SCH ×2 (09:18→14:00)
[2021-11-25] MEDS ORDERED: POTASSIUM CHLORIDE 10MEQ EA PO ONE ×2 (11:30→20:00)
[2021-11-25 12:34] LABS: ANION GAP 7.6 mmol/L (8-16); CALCIUM 9.1 mg/dL (8.4-10.2); CREATININE, SERUM 0.88 mg/dL (0.72-1.25); POTASSIUM 3.6 mmol/L (3.5-5.1)
[2021-11-25] MEDS ORDERED: IOPAMIDOL 370 MG/ML 200 ML INFUS..BTL INJ ONE (13:01)
[2021-11-25] MEDS ORDERED: FENTANYL CITRATE/PF 100MCG/2 ML INJ ONE (13:01)
[2021-11-25] MEDS ORDERED: SODIUM CHLORIDE 0.9% 1000ML 1,000 ML ONE (13:01)
[2021-11-25] MEDS ORDERED: MIDAZOLAM HCL 2 MG/2 ML VIAL ONE ×2 (13:01→14:48)
[2021-11-25] MEDS ORDERED: LIDOCAINE HCL 2% LOCAL 20 ML VIAL ONE (13:01)
[2021-11-25] MEDS ORDERED: HEPARIN SOD/SOD CHLORIDE 2,000 ML ONE (13:01)
[2021-11-25] MEDS ORDERED: FAMOTIDINE 20 MG/2 ML VIAL IV ONE (14:10)
[2021-11-25] MEDS ORDERED: DIPHENHYDRAMINE HCL INJ 50 MG/ML VIAL ONE (14:10)
[2021-11-25] MEDS ORDERED: METHYLPREDNISOLONE SOD SUCC 125 MG/2ML VIAL ONE (14:10)
[2021-11-25] MEDS: ZOLPIDEM TARTRATE 5 MG TAB PO PRN (23:00)
[2021-11-26] VITALS (7 sets, daily range): BP systolic 127–151; BP diastolic 80–95
[2021-11-26] MEDS: Pantoprazole IV 40 MG in SODIUM CHLORIDE 0.9% 50ML 50 ML IV SCH ×6 (01:15→22:30)
[2021-11-26] MEDS: SODIUM CHLORIDE 0.9% 1000ML 1,000 ML IV SCH ×3 (01:15→20:00)
[2021-11-26] MEDS: METRONIDAZOLE 500 MG TAB PO SCH ×5 (01:15→23:30)
[2021-11-26] MEDS: HYDROMORPHONE 2MG/ML 2 MG/ML ML IV PRN ×6 (01:16→22:50)
[2021-11-26] MEDS: NITROGLYCERIN 2% OINT 1 GM PKT TOP SCH ×5 (05:39→23:30)
[2021-11-26] MEDS: PROMETHAZINE 12.5MG/ NACL 0.9% 12.5 MG/50 ML BAG IV PRN ×2 (05:52→12:17)
[2021-11-26] MEDS: DIPHENHYDRAMINE HCL INJ 50 MG/ML VIAL IV PRN ×4 (05:53→23:30)
[2021-11-26 08:59] LABS: ALBUMIN 3.3 g/dL (3.5-5.0); ALBUMIN/GLOBULIN RATIO 1.1 (0.8-2.0); ANION GAP 12.4 mmol/L (8-16); CALCIUM 9.1 mg/dL (8.4-10.2); CREATININE, SERUM 0.99 mg/dL (0.72-1.25); POTASSIUM 3.4 mmol/L (3.5-5.1)
[2021-11-26] MEDS: CIPROFLOXACIN 400 MG/D5W 200ML 200 ML IV SCH ×2 (09:38→18:01)
[2021-11-26] MEDS: DOCUSATE SODIUM 100 MG CAP PO SCH ×2 (09:46→18:01)
[2021-11-26] MEDS: ASPIRIN 81 MG CHEW TAB PO SCH (09:46)
[2021-11-26] MEDS: CARVEDILOL 12.5 MG TAB PO SCH ×2 (09:47→18:04)
[2021-11-26] MEDS: CLOPIDOGREL BISULFATE 75 MG TAB PO SCH (09:48)
[2021-11-26] MEDS: ONDANSETRON HCL INJ 2MG/ML 2ML 2 MG/ML VIAL IV PRN (23:30)
[2021-11-27] VITALS: BP 130/77
[2021-11-27] MEDS: Pantoprazole IV 40 MG in SODIUM CHLORIDE 0.9% 50ML 50 ML IV SCH ×6 (00:45→23:00)
[2021-11-27 04:00] VITALS: BP 121/76
[2021-11-27] MEDS: HYDROMORPHONE 2MG/ML 2 MG/ML ML IV PRN ×5 (05:20→22:55)
[2021-11-27] MEDS: SODIUM CHLORIDE 0.9% 1000ML 1,000 ML IV SCH ×3 (05:27→23:55)
[2021-11-27] MEDS: METRONIDAZOLE 500 MG TAB PO SCH ×4 (05:27→23:57)
[2021-11-27] MEDS: NITROGLYCERIN 2% OINT 1 GM PKT TOP SCH ×4 (05:28→23:59)
[2021-11-27] MEDS: DIPHENHYDRAMINE HCL INJ 50 MG/ML VIAL IV PRN ×2 (05:30→23:57)
[2021-11-27] MEDS: ONDANSETRON HCL INJ 2MG/ML 2ML 2 MG/ML VIAL IV PRN (05:30)
[2021-11-27 08:13] VITALS: BP 117/78
[2021-11-27] MEDS: CLOPIDOGREL BISULFATE 75 MG TAB PO SCH (08:35)
[2021-11-27] MEDS: DOCUSATE SODIUM 100 MG CAP PO SCH ×2 (08:35→17:10)
[2021-11-27] MEDS: ASPIRIN 81 MG CHEW TAB PO SCH (08:35)
[2021-11-27] MEDS: CIPROFLOXACIN 400 MG/D5W 200ML 200 ML IV SCH ×2 (08:35→17:10)
[2021-11-27] MEDS: CARVEDILOL 12.5 MG TAB PO SCH ×2 (08:36→17:11)
[2021-11-27] MEDS: PROMETHAZINE 12.5MG/ NACL 0.9% 12.5 MG/50 ML BAG IV PRN ×2 (10:07→22:55)
[2021-11-27 11:29] VITALS: BP 131/87
[2021-11-27] MEDS ORDERED: SODIUM CHLORIDE 0.9% 250ML 250 ML ONE (11:29)
[2021-11-27] MEDS: CLONIDINE HCL 0.2 MG/24 HR 1 EA PATCH TOP SCH (14:16)
[2021-11-27 16:14] VITALS: BP 126/72
[2021-11-27 20:00] VITALS: BP 125/72
[2021-11-27] MEDS: ZOLPIDEM TARTRATE 5 MG TAB PO PRN (23:30)
[2021-11-28] VITALS (7 sets, daily range): BP systolic 96–151; BP diastolic 56–80
[2021-11-28] MEDS: HYDROMORPHONE 2MG/ML 2 MG/ML ML IV PRN ×3 (03:00→11:19)
[2021-11-28] MEDS: PROMETHAZINE 12.5MG/ NACL 0.9% 12.5 MG/50 ML BAG IV PRN ×3 (03:00→21:15)
[2021-11-28] MEDS: Pantoprazole IV 40 MG in SODIUM CHLORIDE 0.9% 50ML 50 ML IV SCH ×4 (04:04→19:00)
[2021-11-28] MEDS: METRONIDAZOLE 500 MG TAB PO SCH ×4 (06:00→17:14)
[2021-11-28] MEDS: NITROGLYCERIN 2% OINT 1 GM PKT TOP SCH (06:00)
[2021-11-28] MEDS: DIPHENHYDRAMINE HCL INJ 50 MG/ML VIAL IV PRN ×3 (06:53→17:16)
[2021-11-28] MEDS: ASPIRIN 81 MG CHEW TAB PO SCH (09:13)
[2021-11-28] MEDS: DOCUSATE SODIUM 100 MG CAP PO SCH ×2 (09:13→17:14)
[2021-11-28] MEDS: CARVEDILOL 12.5 MG TAB PO SCH ×2 (09:13→17:14)
[2021-11-28] MEDS: CLOPIDOGREL BISULFATE 75 MG TAB PO SCH (09:13)
[2021-11-28 10:03] LABS: BASOPHILS # (AUTO) 0.1 (0.0-0.1); BASOPHILS % 1.1 % (0.0-1.0); EOSINOPHILS # (AUTO) 0.2 (0.0-0.4); EOSINOPHILS % 2.1 % (0.0-6.0); HEMATOCRIT 34.5 % (38.2-49.6); HEMOGLOBIN 11.8 g/dL (14.0-18.0); LYMPHOCYTES # (AUTO) 1.5 (1.0-3.2); LYMPHOCYTES % 18.7 % (18.0-39.1); MEAN CORPUSCULAR HEMOGLOBIN 30.2 pg (28-32); MEAN CORPUSCULAR HGB CONC 34.2 g/dL (31-35); MEAN CORPUSCULAR VOLUME 88.2 fL (81-99); MONOCYTES # (AUTO) 0.7 (0.2-0.8); NEUTROPHILS # (AUTO) 5.7 (2.1-6.9); PLATELET COUNT 243 x10e3/uL (140-360); RED BLOOD COUNT 3.91 x10e6/uL (4.3-5.7); RED CELL DISTRIBUTION WIDTH 14.2 % (11.7-14.4)
[2021-11-28 10:19] LABS: ANION GAP 8.6 mmol/L (8-16); CALCIUM 9.1 mg/dL (8.4-10.2); CREATININE, SERUM 0.9 mg/dL (0.72-1.25); POTASSIUM 3.6 mmol/L (3.5-5.1)
[2021-11-28] MEDS: ONDANSETRON HCL INJ 2MG/ML 2ML 2 MG/ML VIAL IV PRN (11:19)
[2021-11-28] MEDS: ISOSORBIDE MONONITRATE 30 MG TAB CR PO SCH (12:13)
[2021-11-28] MEDS: OXYCODONE/ACETAMINOPHEN 5-325 1 EACH TABLET PO PRN ×2 (13:02→19:15)
[2021-11-28] MEDS: SODIUM CHLORIDE 0.9% 1000ML 1,000 ML IV SCH ×2 (14:10→23:31)
[2021-11-28] MEDS: ZOLPIDEM TARTRATE 5 MG TAB PO PRN (21:15)
[2021-11-29] MEDS: METRONIDAZOLE 500 MG TAB PO SCH ×3 (00:45→13:44)
[2021-11-29] MEDS: DIPHENHYDRAMINE HCL INJ 50 MG/ML VIAL IV PRN ×3 (00:45→13:44)
[2021-11-29] MEDS: Pantoprazole IV 40 MG in SODIUM CHLORIDE 0.9% 50ML 50 ML IV SCH ×3 (01:00→10:00)
[2021-11-29] MEDS: PROMETHAZINE 12.5MG/ NACL 0.9% 12.5 MG/50 ML BAG IV PRN ×2 (01:10→05:24)
[2021-11-29] MEDS: OXYCODONE/ACETAMINOPHEN 5-325 1 EACH TABLET PO PRN ×3 (01:10→13:04)
[2021-11-29 04:00] VITALS: BP 106/58
[2021-11-29] MEDS: SODIUM CHLORIDE 0.9% 1000ML 1,000 ML IV SCH (08:00)
[2021-11-29 08:08] VITALS: BP 108/76
[2021-11-29] MEDS: DOCUSATE SODIUM 100 MG CAP PO SCH (09:00)
[2021-11-29] MEDS: ISOSORBIDE MONONITRATE 30 MG TAB CR PO SCH (09:00)
[2021-11-29] MEDS: CARVEDILOL 12.5 MG TAB PO SCH (09:00)
[2021-11-29] MEDS: CLOPIDOGREL BISULFATE 75 MG TAB PO SCH (09:00)
[2021-11-29] MEDS: ASPIRIN 81 MG CHEW TAB PO SCH (09:00)
[2021-11-29 09:03] VITALS: BP 108/76
[2021-11-29 12:09] VITALS: BP 90/60
== END 2021-11-29 14:09 | DRG 377 ==
LOC: ER 14:10 → ERHOLD 19:59 → MED/SURG3 21:03 → ICU 11-18 04:30 → MED/SURG 11-21 14:39
PROC: 02HV33Z Insertion of Infusion Device into Superior Vena Cava, Percutaneous Approach (ICD-10-PCS; 2021-11-17)
PROC: 4A023N7 Measurement of Cardiac Sampling and Pressure, Left Heart, Percutaneous Approach (ICD-10-PCS; principal; 2021-11-20)
PROC: B2111ZZ Fluoroscopy of Multiple Coronary Arteries using Low Osmolar Contrast (ICD-10-PCS; 2021-11-20)
PROC: B2151ZZ Fluoroscopy of Left Heart using Low Osmolar Contrast (ICD-10-PCS; 2021-11-20)
PROC: 0DB98ZX Excision of Duodenum, Via Natural or Artificial Opening Endoscopic, Diagnostic (ICD-10-PCS; 2021-11-21)
PROC: 0DB78ZX Excision of Stomach, Pylorus, Via Natural or Artificial Opening Endoscopic, Diagnostic (ICD-10-PCS; 2021-11-21)
PROC: 0DB68ZX Excision of Stomach, Via Natural or Artificial Opening Endoscopic, Diagnostic (ICD-10-PCS; 2021-11-21)
PROC: 0DBK8ZX Excision of Ascending Colon, Via Natural or Artificial Opening Endoscopic, Diagnostic (ICD-10-PCS; 2021-11-21)
PROC: 0DBM8ZX Excision of Descending Colon, Via Natural or Artificial Opening Endoscopic, Diagnostic (ICD-10-PCS; 2021-11-21)
DX: K29.71 Gastritis, unspecified, with bleeding (principal); I21.4 Non-ST elevation (NSTEMI) myocardial infarction; I25.110 Atherosclerotic heart disease of native coronary artery with unstable angina pectoris; I69.351 Hemiplegia and hemiparesis following cerebral infarction affecting right dominant side; N17.9 Acute kidney failure, unspecified; K50.10 Crohn's disease of large intestine without complications; K20.91 Esophagitis, unspecified with bleeding; K52.9 Noninfective gastroenteritis and colitis, unspecified; G89.4 Chronic pain syndrome; K21.9 Gastro-esophageal reflux disease without esophagitis; R05.1 Acute cough; L40.9 Psoriasis, unspecified; I10 Essential (primary) hypertension; K31.89 Other diseases of stomach and duodenum; K63.5 Polyp of colon; K64.8 Other hemorrhoids; Z91.041 Radiographic dye allergy status; Z91.048 Other nonmedicinal substance allergy status; Z95.5 Presence of coronary angioplasty implant and graft; Z20.822 Contact with and (suspected) exposure to COVID-19; Z87.442 Personal history of urinary calculi
CPT/HCPCS: 36415; 36569; 43239; 45378; 45380; 70450; 71045; 71260; 74174; 76770; 80048; 80053; 81001; 82550; 82553; 82570; 83630; 83880; 83970; 83993; 84100; 84300; 84484; 84550; 85025; 85379; 85610; 85730; 87045; 87177; 87328; 87493; 88305; 88312; 92928; 92978; 93005; 93306; 93458; 94799; 96375; 96376; 97139; 99152; 99153; 99251; 99284; C1725; C1753; C1874; C1887; J0360; J1170; J1200; J1644; J1650; J1885; J2001; J2060; J2250; J2270; J2405; J2550; J2930; J3010; J7030; J7050; Q9967; U0002

== ENCOUNTER 2022-03-27 11:40 | Inpatient (IN) | payer MEDICARE, BC ==
[~2022-03-27] VITALS: Ht 157.5 cm; Wt 68.0 kg
[~2022-03-27 11:40] MED LIST changes: +CARVEDILOL6.25 MG PO; +RANEXA500 MG PO
[2022-03-27] MEDS ORDERED: ASPIRIN 81 MG CHEW TAB PO STA (11:48)
[2022-03-27] MEDS ORDERED: HYDROCODONE/APAP 5MG-325MG TAB PO ONE (12:00)
[2022-03-27 12:43] LABS: BASOPHILS # (AUTO) 0.1 (0.0-0.1); BASOPHILS % 1.2 % (0.0-1.0); EOSINOPHILS # (AUTO) 0.2 (0.0-0.4); EOSINOPHILS % 2.2 % (0.0-6.0); HEMATOCRIT 44.4 % (38.2-49.6); HEMOGLOBIN 15.5 g/dL (14.0-18.0); LYMPHOCYTES # (AUTO) 1.8 (1.0-3.2); LYMPHOCYTES % 16.1 % (18.0-39.1); MEAN CORPUSCULAR HEMOGLOBIN 31.1 pg (28-32); MEAN CORPUSCULAR HGB CONC 34.9 g/dL (31-35); MEAN CORPUSCULAR VOLUME 89.2 fL (81-99); MONOCYTES # (AUTO) 0.7 (0.2-0.8); MONOCYTES % 6.1 % (4.4-11.3); NEUTROPHILS # (AUTO) 8.1 (2.1-6.9); PLATELET COUNT 315 x10e3/uL (140-360); RED BLOOD COUNT 4.98 x10e6/uL (4.3-5.7); RED CELL DISTRIBUTION WIDTH 13.8 % (11.7-14.4)
[2022-03-27 12:48] LABS: INR 0.9; PARTIAL THROMBOPLASTIN TIME 19.8 seconds (23.8-35.5)
[2022-03-27 12:55] LABS: ALBUMIN 3.7 g/dL (3.5-5.0); ALBUMIN/GLOBULIN RATIO 0.9 (0.8-2.0); ANION GAP 17.9 mmol/L (8-16); CALCIUM 9.3 mg/dL (8.4-10.2); CREATININE, SERUM 1.15 mg/dL (0.72-1.25); POTASSIUM 3.9 mmol/L (3.5-5.1)
[2022-03-27 13:02] LABS: CREATINE KINASE MB 1.2 ng/mL (0-5.0)
[2022-03-27] MEDS: Morphine 2mg Syringe 2 MG/ML SYR IV PRN ×2 (15:16→19:58)
[2022-03-27] MEDS: ONDANSETRON HCL INJ 2MG/ML 2ML 2 MG/ML VIAL IV PRN ×2 (15:17→19:58)
[2022-03-27] MEDS ORDERED: ONDANSETRON HCL INJ 2MG/ML 2ML 2 MG/ML VIAL ONE (15:23)
[2022-03-27 16:00] VITALS: BP 143/92
[2022-03-27] MEDS ORDERED: PANTOPRAZOLE SO40 MG PO (16:50)
[2022-03-27] MEDS ORDERED: PROMETHAZINE HC50 MG PO (16:50)
[2022-03-27 17:12] VITALS: BP 143/92
[2022-03-27] MEDS ORDERED: ACETAMIN/BUTALBITAL/CAFFEINE TAB PO PRN (18:45)
[2022-03-27] MEDS ORDERED: SODIUM CHLORIDE 0.9% 1000ML 1,000 ML ONE (19:43)
[2022-03-27 20:00] VITALS: BP 137/94
[2022-03-27 20:03] LABS: CREATINE KINASE 63 IU/L (30-200)
[2022-03-27] MEDS ORDERED: ZOLPIDEM TARTRATE 10 MG TAB PO PRN (22:00)
[2022-03-27] MEDS ORDERED: LABETALOL HCL 5 MG/ML 20ML VIAL IV PRN (22:00)
[2022-03-27 22:01] VITALS: BP 137/94
[2022-03-28] VITALS (8 sets, daily range): BP systolic 121–154; BP diastolic 83–98
[2022-03-28] MEDS: Morphine 2mg Syringe 2 MG/ML SYR IV PRN ×6 (00:49→20:46)
[2022-03-28] MEDS: ONDANSETRON HCL INJ 2MG/ML 2ML 2 MG/ML VIAL IV PRN ×4 (00:49→20:46)
[2022-03-28 04:53] LABS: BASOPHILS # (AUTO) 0.1 (0.0-0.1); BASOPHILS % 1.4 % (0.0-1.0); EOSINOPHILS # (AUTO) 0.2 (0.0-0.4); EOSINOPHILS % 2.4 % (0.0-6.0); HEMOGLOBIN 16.9 g/dL (14.0-18.0); LYMPHOCYTES # (AUTO) 1.7 (1.0-3.2); LYMPHOCYTES % 18.8 % (18.0-39.1); MEAN CORPUSCULAR HEMOGLOBIN 31.8 pg (28-32); MEAN CORPUSCULAR HGB CONC 33.8 g/dL (31-35); MONOCYTES # (AUTO) 0.7 (0.2-0.8); MONOCYTES % 7.7 % (4.4-11.3); NEUTROPHILS # (AUTO) 6.4 (2.1-6.9); NEUTROPHILS % 69.2 % (38.7-80.0); PLATELET COUNT 144 x10e3/uL (140-360); RED BLOOD COUNT 5.32 x10e6/uL (4.3-5.7); RED CELL DISTRIBUTION WIDTH 13.9 % (11.7-14.4)
[2022-03-28 05:32] LABS: ALBUMIN 3.4 g/dL (3.5-5.0); ALBUMIN/GLOBULIN RATIO 0.8 (0.8-2.0); ANION GAP 14.8 mmol/L (8-16); CALCIUM 8.7 mg/dL (8.4-10.2); CREATININE, SERUM 1.28 mg/dL (0.72-1.25); POTASSIUM 3.8 mmol/L (3.5-5.1)
[2022-03-28 05:57] LABS: CHOL/HDL RATIO 5.8 (3.9-4.7); CREATINE KINASE 55 IU/L (30-200)
[2022-03-28] MEDS ORDERED: CARVEDILOL 12.5 MG TAB PO SCH (09:00)
[2022-03-28] MEDS: DOCUSATE SODIUM 100 MG CAP PO SCH (09:00)
[2022-03-28] MEDS: SENNOSIDES 8.6 MG TAB PO SCH (09:00)
[2022-03-28] MEDS: CARVEDILOL 12.5 MG TAB PO SCH ×2 (09:00→16:43)
[2022-03-28] MEDS: TIZANIDINE HCL 4 MG TAB PO SCH ×3 (09:00→20:45)
[2022-03-28] MEDS ORDERED: POVIDONE IODINE 0.05% 0.05 % ML PO ONE (12:22)
[2022-03-28] MEDS ORDERED: PROPOFOL IV EMULSION 10 MG/ML 20 ML VIAL ONE (12:22)
[2022-03-28] MEDS ORDERED: GLYCOPYRROLATE INJ 0.2 MG/ML VIAL ONE (12:22)
[2022-03-28] MEDS ORDERED: FENTANYL CITRATE/PF 100MCG/2 ML INJ ONE (13:11)
[2022-03-28] MEDS ORDERED: MIDAZOLAM HCL 2 MG/2 ML VIAL ONE (13:11)
[2022-03-28 18:59] LABS: CREATINE KINASE 66 IU/L (30-200)
[2022-03-28] MEDS: CLOPIDOGREL BISULFATE 75 MG TAB PO SCH (20:39)
[2022-03-28] MEDS: ATORVASTATIN 40 MG TAB PO SCH (20:39)
[2022-03-28] MEDS: ASPIRIN 81 MG CHEW TAB PO SCH (21:54)
[2022-03-29] VITALS (7 sets, daily range): BP systolic 109–138; BP diastolic 67–86
[2022-03-29] MEDS: ONDANSETRON HCL INJ 2MG/ML 2ML 2 MG/ML VIAL IV PRN ×6 (00:50→23:40)
[2022-03-29] MEDS: Morphine 2mg Syringe 2 MG/ML SYR IV PRN ×6 (00:50→23:40)
[2022-03-29] MEDS: DOCUSATE SODIUM 100 MG CAP PO SCH (08:57)
[2022-03-29] MEDS: CARVEDILOL 12.5 MG TAB PO SCH ×2 (08:58→17:26)
[2022-03-29] MEDS: TIZANIDINE HCL 4 MG TAB PO SCH ×3 (08:58→20:47)
[2022-03-29] MEDS: SENNOSIDES 8.6 MG TAB PO SCH (08:58)
[2022-03-29 11:06] LABS: BASOPHILS # (AUTO) 0.1 (0.0-0.1); BASOPHILS % 1.5 % (0.0-1.0); EOSINOPHILS # (AUTO) 0.1 (0.0-0.4); EOSINOPHILS % 1.8 % (0.0-6.0); HEMATOCRIT 41.6 % (38.2-49.6); HEMOGLOBIN 14.3 g/dL (14.0-18.0); LYMPHOCYTES # (AUTO) 1.3 (1.0-3.2); LYMPHOCYTES % 16.6 % (18.0-39.1); MEAN CORPUSCULAR HEMOGLOBIN 31.3 pg (28-32); MEAN CORPUSCULAR HGB CONC 34.4 g/dL (31-35); MONOCYTES # (AUTO) 0.5 (0.2-0.8); MONOCYTES % 6.1 % (4.4-11.3); NEUTROPHILS # (AUTO) 5.9 (2.1-6.9); NEUTROPHILS % 73.9 % (38.7-80.0); PLATELET COUNT 260 x10e3/uL (140-360); RED BLOOD COUNT 4.57 x10e6/uL (4.3-5.7)
[2022-03-29 11:23] LABS: CALCIUM 8.7 mg/dL (8.4-10.2); CREATININE, SERUM 1.06 mg/dL (0.72-1.25)
[2022-03-29] MEDS ORDERED: DIAZEPAM 5 MG TAB PO NR (13:40)
[2022-03-29] MEDS: ASPIRIN 81 MG CHEW TAB PO SCH (20:47)
[2022-03-29] MEDS: ATORVASTATIN 40 MG TAB PO SCH (20:47)
[2022-03-29] MEDS: CLOPIDOGREL BISULFATE 75 MG TAB PO SCH (20:47)
[2022-03-30] VITALS: BP 115/78
[2022-03-30 04:00] VITALS: BP 132/92
[2022-03-30] MEDS: ONDANSETRON HCL INJ 2MG/ML 2ML 2 MG/ML VIAL IV PRN ×2 (05:00→08:07)
[2022-03-30] MEDS: Morphine 2mg Syringe 2 MG/ML SYR IV PRN ×2 (05:00→08:07)
[2022-03-30 06:43] LABS: ANION GAP 11.6 mmol/L (8-16); CALCIUM 9.2 mg/dL (8.4-10.2); CREATININE, SERUM 1.09 mg/dL (0.72-1.25); MAGNESIUM 1.8 MG/DL (1.3-2.1); POTASSIUM 3.6 mmol/L (3.5-5.1)
[2022-03-30] MEDS: DOCUSATE SODIUM 100 MG CAP PO SCH (08:06)
[2022-03-30] MEDS: TIZANIDINE HCL 4 MG TAB PO SCH (08:07)
[2022-03-30] MEDS: CARVEDILOL 12.5 MG TAB PO SCH (08:07)
[2022-03-30] MEDS: SENNOSIDES 8.6 MG TAB PO SCH (08:07)
[2022-03-30 08:48] VITALS: BP 132/83
[2022-03-30] MEDS ORDERED: NURTEC ODT75 MG PO (08:56)
[2022-03-30] MEDS ORDERED: CATAPRES-TTS 11 EACH TD (08:56)
[2022-03-30] MEDS ORDERED: LIPITOR20 MG PO (08:56)
[2022-03-30 09:05] VITALS: BP 132/83
== END 2022-03-30 10:58 | disposition home or self-care (01) | DRG 379 ==
LOC: ER 11:45 → ERHOLD 14:14 → MED/SURG2 15:40
PROVIDERS: ADMIT Internal Medicine; ATTEND Internal Medicine
PROC: 0D758ZZ Dilation of Esophagus, Via Natural or Artificial Opening Endoscopic (ICD-10-PCS; 2022-03-28)
PROC: 0DB68ZX Excision of Stomach, Via Natural or Artificial Opening Endoscopic, Diagnostic (ICD-10-PCS; principal; 2022-03-28 14:46)
PROC: 0DB78ZX Excision of Stomach, Pylorus, Via Natural or Artificial Opening Endoscopic, Diagnostic (ICD-10-PCS; 2022-03-28 14:46)
DX: K29.71 Gastritis, unspecified, with bleeding (principal); K57.91 Diverticulosis of intestine, part unspecified, without perforation or abscess with bleeding; K31.7 Polyp of stomach and duodenum; K44.9 Diaphragmatic hernia without obstruction or gangrene; I25.10 Atherosclerotic heart disease of native coronary artery without angina pectoris; Z95.5 Presence of coronary angioplasty implant and graft; I12.9 Hypertensive chronic kidney disease with stage 1 through stage 4 chronic kidney disease, or unspecified chronic kidney disease; R13.10 Dysphagia, unspecified; Z79.82 Long term (current) use of aspirin; Z79.899 Other long term (current) drug therapy; E04.1 Nontoxic single thyroid nodule; Z86.73 Personal history of transient ischemic attack (TIA), and cerebral infarction without residual deficits; E78.5 Hyperlipidemia, unspecified; N18.32 Chronic kidney disease, stage 3b; Z20.822 Contact with and (suspected) exposure to COVID-19; N20.0 Calculus of kidney; K20.90 Esophagitis, unspecified without bleeding
CPT/HCPCS: 36415; 43239; 43450; 70450; 70551; 71045; 74176; 80048; 80053; 80061; 82550; 82553; 83036; 83735; 83880; 84439; 84443; 84484; 85025; 85610; 85730; 88304; 88305; 88312; 93005; 99284; J2250; J2270; J2405; J3010; J7030; U0002